=== PATIENT | female | born 1990 | race Two or more races ===

== ENCOUNTER 2022-06-30 14:18 | Outpatient (CLI) | payer OTHER | END 2022-06-30 16:20 | disposition home or self-care (01) | LOC: PRENATAL 14:18 | PROVIDERS: ATTEND Obstetrics & Gynecology Maternal & Fetal Medicine | DX: O35.9XX0 Maternal care for (suspected) fetal abnormality and damage, unspecified, not applicable or unspecified (principal); O35.3XX0 Maternal care for (suspected) damage to fetus from viral disease in mother, not applicable or unspecified; Z3A.24 24 weeks gestation of pregnancy ==

== ENCOUNTER 2022-07-03 07:38 | Emergency (ER) | payer OTHER ==
[~2022-07-03] VITALS: Ht 167.6 cm; Wt 98.0 kg
[2022-07-03] MEDS ORDERED: PRENA1 TRUE CO1 EACH PO (08:01)
== END 2022-07-03 08:40 | disposition home or self-care (01) ==
LOC: ER 07:38
DX: O99.519 Diseases of the respiratory system complicating pregnancy, unspecified trimester (principal); J06.9 Acute upper respiratory infection, unspecified; Z88.6 Allergy status to analgesic agent; Z88.2 Allergy status to sulfonamides

== ENCOUNTER → 2022-08-03 09:01 | Outpatient (CLI) | payer OTHER ==
[~2022-08-03 09:01] MED LIST: PRENA1 TRUE CO1 EACH PO
== END | disposition home or self-care (01) ==
LOC: LAB 09:01
PROVIDERS: ATTEND Student in an Organized Health Care Education/Training Program
DX: N39.0 Urinary tract infection, site not specified (principal); Z34.02 Encounter for supervision of normal first pregnancy, second trimester

== ENCOUNTER 2022-08-17 06:17 | Outpatient (CLI) | payer OTHER | END 2022-08-17 06:18 | disposition home or self-care (01) | LOC: LAB 06:17 | PROVIDERS: ATTEND Obstetrics & Gynecology | DX: Z34.03 Encounter for supervision of normal first pregnancy, third trimester (principal) ==

== ENCOUNTER 2022-08-22 22:30 | Inpatient (IN) | payer OTHER ==
[~2022-08-22] VITALS: Ht 167.6 cm; Wt 103.4 kg
== END 2022-08-24 10:55 | disposition home or self-care (01) | DRG 833 ==
LOC: OBS/DEL 22:30 → LDR 08-23 09:00
PROVIDERS: ADMIT Obstetrics & Gynecology; ATTEND Obstetrics & Gynecology
PROC: 4A1HXCZ Monitoring of Products of Conception, Cardiac Rate, External Approach (ICD-10-PCS; principal; 2022-08-23)
DX: O26.893 Other specified pregnancy related conditions, third trimester (principal); Z3A.31 31 weeks gestation of pregnancy; Z20.822 Contact with and (suspected) exposure to COVID-19; R51.9 Headache, unspecified

== ENCOUNTER 2022-08-29 13:51 | Outpatient (CLI) | payer OTHER | END 2022-08-29 15:25 | disposition home or self-care (01) | LOC: PRENATAL 13:51 | PROVIDERS: ATTEND Obstetrics & Gynecology Maternal & Fetal Medicine | DX: O26.849 Uterine size-date discrepancy, unspecified trimester (principal); O36.8199 Decreased fetal movements, unspecified trimester, other fetus; Z3A.32 32 weeks gestation of pregnancy ==

== ENCOUNTER 2022-10-08 14:08 | Inpatient (IN) | payer OTHER ==
[~2022-10-08] VITALS: Ht 167.6 cm; Wt 111.1 kg
[2022-10-10] MEDS ORDERED: DOCUSATE SODIU100 MG PO (18:17)
== END 2022-10-10 18:22 | disposition home or self-care (01) | DRG 807 ==
LOC: OB/GYN 14:08 → LDR 14:08 → OB/GYN 22:27
PROVIDERS: ADMIT Student in an Organized Health Care Education/Training Program; ATTEND Student in an Organized Health Care Education/Training Program
PROC: 10E0XZZ Delivery of Products of Conception, External Approach (ICD-10-PCS; principal; 2022-10-08)
PROC: 0KQM0ZZ Repair Perineum Muscle, Open Approach (ICD-10-PCS; 2022-10-08)
PROC: 4A1HXCZ Monitoring of Products of Conception, Cardiac Rate, External Approach (ICD-10-PCS; 2022-10-08)
DX: O70.1 Second degree perineal laceration during delivery (principal); Z37.0 Single live birth; O99.824 Streptococcus B carrier state complicating childbirth; Z3A.38 38 weeks gestation of pregnancy; Z20.822 Contact with and (suspected) exposure to COVID-19

== ENCOUNTER 2022-10-16 04:56 | Emergency (ER) | payer OTHER ==
[~2022-10-16] VITALS: Ht 167.6 cm; Wt 108.0 kg
[~2022-10-16 04:56] MED LIST changes: +DOCUSATE SODIU100 MG PO
== END 2022-10-16 10:56 | disposition home or self-care (01) ==
LOC: ER 04:56
DX: R10.2 Pelvic and perineal pain (principal); Z88.6 Allergy status to analgesic agent; Z88.2 Allergy status to sulfonamides

== ENCOUNTER → 2023-06-30 07:08 | Outpatient (CLI) | payer OTHER | END | disposition home or self-care (01) | LOC: LAB 07:08 | PROVIDERS: ATTEND Family Medicine | DX: E03.9 Hypothyroidism, unspecified (principal); E04.1 Nontoxic single thyroid nodule ==

== ENCOUNTER 2023-07-17 12:06 | Emergency (ER) | payer OTHER ==
[~2023-07-17] VITALS: Ht 167.6 cm; Wt 97.5 kg
[2023-07-17 16:12] LABS: HEMATOCRIT 37.8 % (36.0-45.00); HEMOGLOBIN 12.7 g/dL (12.0-15.00); MEAN CELL VOLUME 83.8 fL (80.00-100.00); MEAN CORPUSCULAR HEMOGLOBIN 28.2 pg (27.00-32.0); MEAN CORPUSCULAR HGB CONC 33.7 g/dl (32.0-36.0); PLATELET COUNT 206 K/uL (150-450); RED BLOOD COUNT 4.51 M/uL (4.00-6.00); RED CELL DISTRIBUTION WIDTH 13.7 % (11.5-14.5)
[2023-07-17 16:26] LABS: ALBUMIN 3.6 gm/dL (3.4-5.0); BILIRUBIN TOTAL 0.49 mg/dL (0.3-1.2); CALCIUM 8.5 mg/dL (8.5-10.1); CREATININE SERUM 0.81 mg/dL (0.55-1.02); GFR 83.02; POTASSIUM 3.51 mEq/L (3.5-5.1); TOTAL PROTEIN 7.6 gm/dL (6.4-8.2)
== END 2023-07-17 17:09 | disposition home or self-care (01) ==
LOC: ER 12:07
PROVIDERS: General Practice
DX: B34.9 Viral infection, unspecified (principal); R50.9 Fever, unspecified; Z20.822 Contact with and (suspected) exposure to COVID-19; Z88.2 Allergy status to sulfonamides; Z88.6 Allergy status to analgesic agent; Z91.048 Other nonmedicinal substance allergy status

== ENCOUNTER 2025-05-07 13:28 | Outpatient (CLI) | payer OTHER | END 2025-05-07 13:32 | disposition home or self-care (01) | LOC: SONOGRAMA 13:28 | PROVIDERS: ATTEND Pathology Anatomic Pathology & Clinical Pathology | DX: C61 Malignant neoplasm of prostate (principal); E04.2 Nontoxic multinodular goiter ==